=== PATIENT | female | born 1995 | race Caucasian/White ===

== ENCOUNTER 2018-01-27 09:29 | Emergency (ER) | payer SELFPAY ==
[2018-01-27] MEDS ORDERED: Sulfameth/Trimethoprim DS 800-160mg TAB ONE (10:16)
[2018-01-27] MEDS ORDERED: Adacel (T-DAP) 0.5 ML VIAL ONE (10:16)
== END 2018-01-27 10:52 | disposition home or self-care (01) ==
LOC: BURERS 09:29
DX: L03.213 Periorbital cellulitis (principal); J45.909 Unspecified asthma, uncomplicated; F41.9 Anxiety disorder, unspecified; F32.9 Major depressive disorder, single episode, unspecified; F17.210 Nicotine dependence, cigarettes, uncomplicated
CPT/HCPCS: 10160; 90471; 90715

== ENCOUNTER 2018-01-28 08:33 | Emergency (ER) | payer SELFPAY | END 2018-01-28 09:09 | disposition home or self-care (01) | LOC: BURERS 08:33 | DX: L03.213 Periorbital cellulitis (principal); J45.909 Unspecified asthma, uncomplicated; F41.9 Anxiety disorder, unspecified; F32.9 Major depressive disorder, single episode, unspecified; F17.210 Nicotine dependence, cigarettes, uncomplicated | CPT/HCPCS: 99283 ==

== ENCOUNTER 2020-08-08 11:53 | Emergency (ER) | payer OTHER, SELFPAY ==
[2020-08-09 12:23] LABS: SARS-CoV-2 MS2 Positive; SARS-CoV-2 N Gene Negative; SARS-CoV-2 S Gene Negative; SARS-CoV-2 by NAA Not Detected (NotDetected); SARS-CoV-2 orf1ab Negative
== END 2020-08-08 12:15 | disposition home or self-care (01) ==
LOC: BURERS 11:53
DX: U07.1 COVID-19 (principal); F17.210 Nicotine dependence, cigarettes, uncomplicated
CPT/HCPCS: 87635; 99283; U0003